=== PATIENT | female | born 1950 | race American Indian/Alaskan Native ===

== ENCOUNTER 2018-11-25 20:14 | Emergency (ER) | payer MEDICARE ==
[2018-11-25] MEDS ORDERED: CATAPRES PO ONE (20:28)
--- NOTE | 2018-11-25 20:28 | Emergency Department Report ---
Blank Doc - Documentation Documentation: This is a 68-year-old female that presents with headache left sided headache. Denies any history of headache. Denies any visual change or blurry vision. Denies worst headache or tunderclap headache. This initial assessment diagnostic orders/clinical plan/treatment(s) is/are subject to change based on patient's health status, clinical progression and re- assessment by fellow clinical providers in the ED. Further treatment and workup at subsequent clinical providers discretion. Patient/guardians urged not to elope from ED s their condition may be serious if not clinically assessed and managed. Initial orders include: 1-patient sent to main ED for further evaluation and treatment. 2- Labs 3- CT of head 4- Catapress ordered in the ED 5- Charge was notified to have patient brought by [facility]
[2018-11-25 21:13] LABS: Basophils % (Auto) 0.4 % (0.0-1.8); Eosinophils % (Auto) 0.3 % (0.0-4.3); Hematocrit 34.6 % (30.3-42.9); Hemoglobin 11.3 gm/dl (10.1-14.3); Lymphocytes # (Auto) 0.9 K/mm3 (1.2-5.4); Lymphocytes % (Auto) 20.4 % (13.4-35.0); Mean Corpuscular HGB Conc 33 % (30-34); Mean Corpuscular Volume 83 fl (79-97); Monocytes # (Auto) 0.5 K/mm3 (0.0-0.8); Monocytes % (Auto) 10.7 % (0.0-7.3); Platelet Count 243 K/mm3 (140-440); Red Blood Count 4.15 M/mm3 (3.65-5.03); Red Cell Distribution Width 15.2 % (13.2-15.2)
[2018-11-25 21:17] LABS: INR 1.08 (0.87-1.13); Partial Thromboplastin Time 25.9 Sec. (24.2-36.6)
[2018-11-25 21:27] LABS: Alanine Aminotransferase 22 units/L (7-56); BUN/Creatinine Ratio 23; Blood Urea Nitrogen 18 mg/dL (7-17); Hemolysis Index 0
--- NOTE | 2018-11-25 21:43 | Cat Scan Report ---
FINAL REPORT PROCEDURE: CT HEAD/BRAIN WO CON TECHNIQUE: Computerized tomography of the head was performed without contrast material. HISTORY: headache COMPARISON: No prior studies are available for comparison. FINDINGS: Skull and scalp: Normal. Paranasal sinuses: Normal. Ventricles and subarachnoid spaces: Mild dilatation. Cerebrum: No evidence of hemorrhage, acute infarction or mass. Mild atrophy with periventricular and deep white matter diminished densities Cerebellum and brainstem: No evidence of hemorrhage, acute infarction or mass. Vasculature: Normal. Comments: None. IMPRESSION: Involutional change with atrophy and microangiopathy. No hemorrhage.
[2018-11-25] MEDS ORDERED: TYLENOL PO ONE (23:04)
[2018-11-25] MEDS ORDERED: TYLENOL ONE (23:08)
[2018-11-26 00:22] VITALS: BP 141/60
--- NOTE | 2018-11-26 00:47 | Emergency Department Report ---
ED Headache HPI - General Chief Complaint: High BP Stated Complaint: HIGH BP/HEADACHE Time Seen by Provider: 11/25/18 20:25 Source: patient, family Exam Limitations: no limitations - History of Present Illness Initial Comments: Patient stopped taking all her medications about 2 weeks ago. She came to the emergency room today complaining of headache. In triage her Blood pressure was 119/81. Timing/Duration: 24 hours Quality: moderate, throbbing Head Injury Location: global Recent Head Trauma: no recent headache/trauma Associated Symptoms: denies symptoms Allergies/Adverse Reactions: Allergies codeine Allergy (Verified 11/25/18 20:19) Hives Home Medications: Ambulatory Orders Amlodipine Besylate [Norvasc] 10 mg PO DAILY #30 tablet 11/26/18 Enalapril/Hydrochlorothiazide [Enalapril-Hctz 10-25 mg Tablet] 1 each PO DAILY #30 tablet 11/26/18 ED Review of Systems ROS: Stated complaint: HIGH BP/HEADACHE Other details as noted in HPI Comment: All other systems reviewed and negative Constitutional: denies: chills, fever Eyes: denies: eye pain, eye discharge, vision change ENT: denies: ear pain, throat pain Respiratory: denies: cough, shortness of breath, wheezing Cardiovascular: denies: chest pain, palpitations Endocrine: no symptoms reported Gastrointestinal: denies: abdominal pain, nausea, diarrhea Genitourinary: denies: urgency, dysuria, discharge Musculoskeletal: denies: back pain, joint swelling, arthralgia Skin: denies: rash, lesions Neurological: headache. denies: weakness, numbness, paresthesias, confusion, abnormal gait, vertigo Psychiatric: denies: anxiety, depression Hematological/Lymphatic: denies: easy bleeding, easy bruising ED Past Medical Hx - Past Medical History Hx Hypertension: Yes Additional medical history: Thyroid Disease - Surgical History Past Surgical History?: No - Social History Smoking Status: Never Smoker Substance Use Type: None - Medications Home Medications: Home Medications Medication Instructions Recorded Confirmed Last Taken Type Amlodipine Besylate [Norvasc] 10 mg PO DAILY #30 tablet 11/26/18 Unknown Rx Enalapril/Hydrochlorothiazide 1 each PO DAILY #30 tablet 11/26/18 Unknown Rx [Enalapril-Hctz 10-25 mg Tablet] ED Physical Exam - General Limitations: No Limitations General appearance: alert, in no apparent distress - Head Head exam: Present: atraumatic, normocephalic, normal inspection - Eye Eye exam: Present: normal appearance, PERRL, EOMI Pupils: Present: normal accommodation - ENT ENT exam: Present: normal exam, normal orophraynx, mucous membranes moist - Neck Neck exam: Present: normal inspection, full ROM. Absent: tenderness, meningismus - Respiratory Respiratory exam: Present: normal lung sounds bilaterally. Absent: respiratory distress, wheezes, rales - Cardiovascular Cardiovascular Exam: Present: regular rate, normal rhythm, normal heart sounds. Absent: systolic murmur, diastolic murmur, rubs, gallop - GI/Abdominal GI/Abdominal exam: Present: soft, normal bowel sounds - Extremities Exam Extremities exam: Present: normal inspection, full ROM, normal capillary refill - Back Exam Back exam: Present: normal inspection, full ROM - Neurological Exam Neurological exam: Present: alert, oriented X3, CN II-XII intact, normal gait - Psychiatric Psychiatric exam: Present: normal affect, normal mood - Skin Skin exam: Present: warm, dry, intact, normal color. Absent: rash ED Course Vital Signs 11/25/18 11/25/18 11/25/18 20:24 20:33 22:34 Temperature 99 F Pulse Rate 77 77 69 Respiratory 18 16 Rate Blood Pressure 192/81 192/81 Blood Pressure 170/65 [Left] O2 Sat by Pulse 98 98 Oximetry 11/26/18 00:21 Temperature Pulse Rate 59 L Respiratory 16 Rate Blood Pressure Blood Pressure 141/60 [Left] O2 Sat by Pulse 99 Oximetry - Reevaluation(s) Reevaluation #1: 11/26/18 00:46 Patient is feeling better and her headache has resolved. She wants to go home. She still has a blood pressure medications and does not need any refill at this time. She will follow up with her primary doctor tomorrow morning. ED Medical Decision Making - Lab Data Result diagrams: 11/25/18 20:44 11/25/18 20:44 Lab Results 11/25/18 11/25/18 11/25/18 Range/Units 20:44 20:44 20:44 WBC 4.3 L (4.5-11.0) K/mm3 RBC 4.15 (3.65-5.03) M/mm3 Hgb 11.3 (10.1-14.3) gm/dl Hct 34.6 (30.3-42.9) % MCV 83 (79-97) fl MCH 27 L (28-32) pg MCHC 33 (30-34) % RDW 15.2 (13.2-15.2) % Plt Count 243 (140-440) K/mm3 Lymph % (Auto) 20.4 (13.4-35.0) % [place] % (Auto) 10.7 H (0.0-7.3) % Eos % (Auto) 0.3 (0.0-4.3) % Baso % (Auto) 0.4 (0.0-1.8) % Lymph # 0.9 L (1.2-5.4) K/mm3 [place] # 0.5 (0.0-0.8) K/mm3 Eos # 0.0 (0.0-0.4) K/mm3 Baso # 0.0 (0.0-0.1) K/mm3 Seg Neutrophils % 68.2 (40.0-70.0) % Seg Neutrophils # 2.9 (1.8-7.7) K/mm3 PT 14.7 (12.2-14.9) Sec. INR 1.08 (0.87-1.13) APTT 25.9 (24.2-36.6) Sec. Sodium 139 (137-145) mmol/L Potassium 3.6 (3.6-5.0) mmol/L Chloride 99.6 (98-107) mmol/L Carbon Dioxide 29 (22-30) mmol/L Anion Gap 14 mmol/L BUN 18 H (7-17) mg/dL Creatinine 0.8 (0.7-1.2) mg/dL Estimated GFR > 60 ml/min BUN/Creatinine Ratio 23 % Glucose 169 H (65-100) mg/dL Calcium 9.0 (8.4-10.2) mg/dL Total Bilirubin 0.30 (0.1-1.2) mg/dL AST 25 (5-40) units/L ALT 22 (7-56) units/L Alkaline Phosphatase 68 (35-129) units/L Total Protein 7.6 (6.3-8.2) g/dL Albumin 4.0 (3.9-5) g/dL Albumin/Globulin Ratio 1.1 % - Radiology Data Radiology results: report reviewed, image reviewed CT scan of the head without IV contrast is unremarkable. - Medical Decision Making Uncontrolled high blood pressure. Critical care attestation.: If time is entered above; I have spent that time in minutes in the direct care of this critically ill patient, excluding procedure time. ED Disposition Clinical Impression: Uncontrolled hypertension Headache Qualifiers: Headache type: unspecified Headache chronicity pattern: unspecified pattern Intractability: not intractable Qualified Code(s): R51 - Headache Disposition: DC- TO HOME OR SELFCARE Is pt being admited?: No Does the pt Need Aspirin: No Condition: Stable Instructions: Hypertension (ED) Additional Instructions: Please follow up with your primary doctor tomorrow morning. Please continue taking your medications until he see a primary doctor. Return to the emergency room if her condition worsens. Prescriptions: Amlodipine Besylate [Norvasc] 10 mg PO DAILY #30 tablet Enalapril/Hydrochlorothiazide [Enalapril-Hctz 10-25 mg Tablet] 1 each PO DAILY #30 tablet Referrals: CINTHYA MEIER [Staff Physician] - 3-5 Days Time of Disposition: 00:47
== END 2018-11-26 01:15 | disposition home or self-care (01) ==
LOC: ED 20:14
DX: I10 Essential (primary) hypertension (principal); Z88.5 Allergy status to narcotic agent; Z79.899 Other long term (current) drug therapy
CPT/HCPCS: 36415; 70450; 80053; 85025; 85610; 85730

== ENCOUNTER 2019-03-16 21:46 | Emergency (ER) | payer MEDICARE ==
[2019-03-16] MEDS ORDERED: TORADOL IM ONE (22:13)
--- NOTE | 2019-03-16 22:18 | Emergency Department Report ---
HPI - General Chief Complaint: Extremity Injury, Lower Time Seen by Provider: 03/16/19 22:03 - HPI HPI: Room 2 The patient is a 68-year-old female presenting with a chief complaint of pain. The patient states she developed pain in the left hip 2 days ago described as throbbing in nature. The patient states the pain is been progressively worsening and she radiates down her left lower extremity. Patient denies any preceding trauma or history of fever. Patient currently gives her pain score is 8/10. The patient states she is a recovering addict and does not wish to receive narcotic pain medication Location: Left hip Duration: 3 days Quality: Throbbing Severity:8/10 Modifying factors: Movement or weightbearing worsens pain Context: [see above] Mode of transportation: [not driving] ED Past Medical Hx - Past Medical History Previous Medical History?: Yes Hx Hypertension: Yes Hx Kidney Stones: Yes (hep c) Additional medical history: Thyroid Disease - Surgical History Past Surgical History?: Yes Additional Surgical History: cyst removal from right arm, cyst removal from L side of head, " pins and screws in left ankle" - Family History Family history: no significant - Social History Smoking Status: Former Smoker (none 20 years) Substance Use Type: None - Medications Home Medications: Home Medications Medication Instructions Recorded Confirmed Last Taken Type Amlodipine Besylate [Norvasc] 10 mg PO DAILY #30 tablet 11/26/18 Unknown Rx Enalapril/Hydrochlorothiazide 1 each PO DAILY #30 tablet 11/26/18 Unknown Rx [Enalapril-Hctz 10-25 mg Tablet] Cyclobenzaprine [Flexeril] 10 mg PO TID PRN #14 tablet 03/16/19 Unknown Rx Ibuprofen [Motrin 800 MG tab] 800 mg PO Q8HR PRN #20 tablet 03/16/19 Unknown Rx ED Review of Systems ROS: Stated complaint: LEFT HIP PAIN Other details as noted in HPI Constitutional: denies: fever Eyes: denies: eye pain ENT: denies: throat pain Respiratory: no symptoms reported Cardiovascular: denies: chest pain Endocrine: no symptoms reported Gastrointestinal: denies: abdominal pain Genitourinary: denies: dysuria Musculoskeletal: arthralgia. denies: back pain Neurological: denies: headache Physical Exam - Physical Exam Vital Signs: Vital Signs 03/16/19 22:06 Temperature 97.2 F L Pulse Rate 61 Respiratory 19 Rate Blood Pressure 151/68 O2 Sat by Pulse 99 Oximetry Physical Exam: GENERAL: The patient is well-developed well-nourished female lying on stretcher not appearing to be in acute distress. [] HEENT: Normocephalic. Atraumatic. Extraocular motions are intact. Patient has moist mucous membranes. NECK: Supple. Trachea midline CHEST/LUNGS: There is no respiratory distress noted. HEART/CARDIOVASCULAR: Regular. There is no tachycardia. 2+ left DP. Normal capillary refill digits of the left foot SKIN: There is no rash. There is no edema. There is no diaphoresis. NEURO: The patient is awake, alert, and oriented. The patient is cooperative. The patient has no focal neurologic deficits. The patient has normal speech MUSCULOSKELETAL: There is positive straight leg raise test of the left lower extremity. There is no evidence of acute injury. ED Course Vital Signs 03/16/19 22:06 Temperature 97.2 F L Pulse Rate 61 Respiratory 19 Rate Blood Pressure 151/68 O2 Sat by Pulse 99 Oximetry ED Medical Decision Making - Radiology Data Radiology results: report reviewed (CT pelvis), image reviewed (CT pelvis, left hip x-ray) interpreted by me: Left hip x-ray-no acute fracture [facility] [address] [place] [address] Cat Scan Report Signed Patient: SIERRA GARCÍA MR#: [id number] : 1950 Acct:[id number] Age/Sex: 68 / F ADM Date: 03/16/19 Loc: ED Attending Dr: Ordering Physician: ILA MACKENZIE MD Date of Service: 03/16/19 Procedure(s): CT pelvis wo con Accession Number(s): [id number] cc: ILA MACKENZIE MD PROCEDURE: CT PELVIS WO CON TECHNIQUE: CT of the pelvis obtained without contrast. Coronal and sagittal reformatted obtained. HISTORY: left hip pain COMPARISONS: None FINDINGS: Age indeterminate avulsion fractures seen of the right ischial tuberosity. No other acute fracture or dislocation visualized. Broad-based central disc herniation and mild to moderate central canal stenosis seen at L4/L5. Partially visualized pelvic viscera unremarkable. IMPRESSION: Age indeterminate avulsion fractures seen of the right ischial tuberosity. No other acute fracture or dislocation visualized.. This document is electronically signed by Cabrera Uddin, MD., March 16 2019 10:59:35 PM ET Transcribed By: QF Dictated By: CABRERA RODRIGUEZ Electronically Authenticated By: CABRERA RODRIGUEZ Signed Date/Time: 03/16/192300 DD/ 47 TD/TT: 03/16/192247 - Differential Diagnosis sciatica, occult fracture, arthritis Critical care attestation.: If time is entered above; I have spent that time in minutes in the direct care of this critically ill patient, excluding procedure time. ED Disposition Clinical Impression: Sciatica Disposition: - TO HOME OR SELFCARE Is pt being admited?: No Does the pt Need Aspirin: No Condition: Stable Instructions: Lumbar Radiculopathy (ED), Arthralgia (ED) Additional Instructions: Return to the emergency department immediately should you develop worsening symptoms, fever, inability to tolerate food or liquid or any other concerns. Prescriptions: Cyclobenzaprine [Flexeril] 10 mg PO TID PRN #14 tablet PRN Reason: Muscle Spasm Ibuprofen [Motrin 800 MG tab] 800 mg PO Q8HR PRN #20 tablet PRN Reason: Pain , Severe (7-10) Referrals: CINTHYA MEIER MD [Primary Care Provider] - 3-5 Days KULWINDER VARELA MD [Staff Physician] - 3-5 Days (Dr. Varela is an orthopedic surgeon. Please follow up with him for further evaluation) Time of Disposition: 23:28
--- NOTE | 2019-03-16 23:01 | Cat Scan Report ---
PROCEDURE: CT PELVIS WO CON TECHNIQUE: CT of the pelvis obtained without contrast. Coronal and sagittal reformatted obtained. HISTORY: left hip pain COMPARISONS: None FINDINGS: Age indeterminate avulsion fractures seen of the right ischial tuberosity. No other acute fracture or dislocation visualized. Broad-based central disc herniation and mild to moderate central canal stenosis seen at L4/L5. Partially visualized pelvic viscera unremarkable. IMPRESSION: Age indeterminate avulsion fractures seen of the right ischial tuberosity. No other acute fracture or dislocation visualized.. This document is electronically signed by Denny Carr MD., March 16 2019 10:59:35 PM ET
--- NOTE | 2019-03-16 23:33 | XRay Report ---
PROCEDURE: XR HIP 2-3V LT TECHNIQUE: Left hip radiographs, 2 views. HISTORY: Hip pain COMPARISONS: None FINDINGS: Fracture (s) and/or Dislocation(s): None Joint space(s): Normal Soft tissues: Normal Bone mineralization: Normal Foreign bodies: None IMPRESSION: Normal Examination This document is electronically signed by Julian Mei MD., March 16 2019 11:31:01 PM ET
[2019-03-17 00:23] VITALS: BP 126/74
== END 2019-03-17 00:22 | disposition home or self-care (01) ==
LOC: ED 21:46
DX: M54.32 Sciatica, left side (principal); I10 Essential (primary) hypertension; Z86.19 Personal history of other infectious and parasitic diseases; Z87.891 Personal history of nicotine dependence; Z98.890 Other specified postprocedural states; Z79.899 Other long term (current) drug therapy; Z87.442 Personal history of urinary calculi; Z88.5 Allergy status to narcotic agent; Z88.0 Allergy status to penicillin
CPT/HCPCS: 72192; 73502; 96372; 99284; J1885